=== PATIENT | female | born 1965 | race Two or more races ===

== ENCOUNTER 2021-07-05 08:00 | Day surgery (SDC) | payer OTHER ==
[~2021-07-05 08:00] MED LIST: CLONAZEPAM0.5 MG PO; LIBRAX; VALTREX1000 MG PO
== END 2021-07-05 13:35 | disposition home or self-care (01) ==
LOC: AMB-ENDOS 08:00
PROVIDERS: ATTEND Surgery
DX: K62.1 Rectal polyp (principal)